=== PATIENT | female | born 1970 ===

== ENCOUNTER 2023-02-19 14:47 | Outpatient (CLI) | payer OTHER | END 2023-02-19 14:49 | disposition home or self-care (01) | LOC: SONOGRAMA 14:47 | PROVIDERS: ATTEND Pathology Anatomic Pathology & Clinical Pathology | DX: D34 Benign neoplasm of thyroid gland (principal); E04.2 Nontoxic multinodular goiter; E07.89 Other specified disorders of thyroid ==